=== PATIENT | male | born 1965 | race Caucasian/White ===

== ENCOUNTER 2017-02-28 08:59 | Emergency (ER) | payer BC ==
--- NOTE | 2017-02-28 09:32 | Emergency Department Record ---
History of Present Illness - General Chief Complaint: Palpitations Stated Complaint: HEART FLUTTERY Time Seen by Provider: 02/28/17 09:17 Source: Patient Mode of Arrival: Ambulatory Limitations: No limitations - History of Present Illness Initial Comments: The patient is here due to not feeling well today. He woke up twice during the night and felt lightheaded with standing. The first time was at 1am and he sat back down and the lightheadedness lasted 2-3 minutes. He also got up at 3am and after standing again felt lightheaded and may have passed out for 10 seconds. He states his girlfriend was in the bed and was with him and helped into the bed. There was no reported head trauma or injury and he has had no MALLORY after the fall. Since then he has intermittent fluttering in his chest and has a hx of Afib. Additionally he states he has had a 35 lb weight loss over the last few months and also has had some hemmorrhoids. The patient states he does have a cardiac hx and did have an WI about 10 years ago and does have 5 stents. MD Complaint: "Heart racing", Palpitations Onset/Timin -: Hour(s) Arrythmia History: Atrial fibrillation, History of ablation Associated Symptoms: Anxiety, Near-syncope, Other - Related Data Home Medications Medication Instructions Recorded Confirmed Last Taken Atorvastatin Calcium [Lipitor] 80 mg PO QHS 02/28/17 02/28/17 02/27/17 Clonazepam [Klonopin] 1 mg PO QHS 02/28/17 02/28/17 02/27/17 Clopidogrel Bisulfate [Plavix] 75 mg PO DAILY 02/28/17 02/28/17 02/28/17 Hydrocodone/Acetaminophen [Newell 1 each PO ASDIR 02/28/17 02/28/17 02/27/17 7.5-325 Tablet] Allergies Allergy/AdvReac Type Severity Reaction Status Date / Time No Known Drug Allergies Allergy Verified 02/28/17 09:42 Travel Screening - Travel/Exposure Within Last 30 Days Have you traveled within the last 30 days?: No - Travel/Exposure Within Last Year Have you traveled outside the [place] in the last year?: No - Additonal Travel Details Have you been exposed to anyone with a communicable illness?: No - Travel Symptoms Symptom Screening: None Review of Systems Constitutional: Denies: Chills, Fever, Malaise Eyes: Denies: Eye discharge ENT: Denies: Congestion Respiratory: Denies: Cough, Dyspnea Cardiovascular: Reports: Arrhythmia. Denies: Chest pain, Dyspnea on exertion Past Medical History - SOCIAL HISTORY Smoking Status: Current every day smoker Alcohol Use: None Drug Use: Rare Drug Use Detail:: Marijuana - RESPIRATORY Hx Respiratory Disorders: Yes Hx COPD: Yes (onset) - CARDIOVASCULAR Hx Cardio Disorders: Yes Hx Abnormal EKG: Yes Hx Cardiac Cath: Yes Hx Heart Attack: Yes Hx Irregular Heartbeat: Yes Comment:: ablation - NEURO Hx Neuro Disorders: Yes Hx Neuropathy: Yes - GI Hx GI Disorders: Yes Hx Diverticulitis: Yes Hx Hiatal Hernia: Yes - Hx Genitourinary Disorders: Yes Hx Kidney Stones: Yes - ENDOCRINE Hx Endocrine Disorders: No - MUSCULOSKELETAL Hx Musculoskeletal Disorders: Yes Hx Arthritis: Yes - PSYCH Hx Psych Problems: No - HEMATOLOGY/ONCOLOGY Hx Hematology/Oncology Disorders: No Family Medical History Any Significant Family History?: No Physical Exam - General General Appearance: Alert, Oriented x3, Cooperative, No acute distress - Head Head exam: Atraumatic, Normocephalic, Normal inspection - Eye Eye exam: Normal appearance, PERRL, EOMI - Neck Neck exam: Normal inspection, Full ROM. negative: Tenderness - Respiratory Respiratory exam: Normal lung sounds bilaterally. negative: Respiratory distress - Cardiovascular Cardiovascular Exam: Regular rate, Normal rhythm, Normal heart sounds - GI/Abdominal GI/Abdominal exam: Soft, Normal bowel sounds. negative: Tenderness - Extremities Extremities exam: Normal inspection, Full ROM, Normal capillary refill. negative: Tenderness - Neurological Neurological exam: Alert. negative: Motor sensory deficit Course Vital Signs 02/28/17 09:16 Temperature 98.1 F Pulse Rate [ 86 Pulse Ox Probe] Respiratory 16 Rate Blood Pressure 117/83 [Left Arm] - Reevaluation(s) Reevaluation #1: The patient is doing very well at this time. I did explain to him that his tests are all WNL's including the EKG and CXR. Due to his cardiac hx I did recommend hospital admission for monitoring but he is refusing. I explained to him that we would keep him here to monitor his heart and for a Cardiology consult on Thursday. The patient understands the reasons for the admission but is declining and would like to go home. He understands we cannot be held liable for any injury or illness that occurs due to NOT admitting him here. I also explained to him that he should return to the ER at any time for any further issues or problems. He does have an appointment with his PCP in 12 days. 02/28/17 10:45 Medical Decision Making - Data Complexity MDM Data: Labs Ordered and/or Reviewed, X-Ray Ordered and/or Reviewed, EKG Ordered and/or Reviewed - Lab Data Result diagrams: 02/28/17 09:19 02/28/17 09:19 - EKG Data -: EKG Interpreted by Me EKG: No Acute Changes, Normal EKG - Radiology Data Radiology results: Report reviewed (CXR: Neg.) Disposition Disposition: Discharge Clinical Impression: Weakness Disposition: Home, Self-Care Condition: (2) Stable Instructions: Heart Palpitations (ED) Additional Instructions: Please continue your regular medicines. Please see your PCP as planned on the . Return to the ER for any problems, pain or discomfort. Forms: Patient Portal Access Time of Disposition: 10:49 Quality - Quality Measures Quality Measures: N/A - Blood Pressure Screening View Details: Yes Does Patient Have Any of the Following: No Blood Pressure Classification: Normal BP Reading Systolic Measurement: 119 Diastolic Measurement: 73 Screening for High Blood Pressure: < Normal BP, F/U Not Required > [[id number]]
[2017-02-28 09:35] LABS: BASO % 0.5 % (0-6); HEMATOCRIT 42.5 % (42.0-52.0); HEMOGLOBIN 14.7 gm/dl (14.0-18.0); LYMPH % 27.5 % (16-45); MEAN CELL VOLUME 92.4 fl (81-97); MEAN CORPUSCULAR HGB CONC 34.6 g/dl (32-36); MEAN PLATELET VOLUME 8.6 fl (7.4-10.4); PLATELET COUNT 262 K/uL (130-400); RED CELL DISTRIBUTION WIDTH 12.8 % (11.5-14.5); WHITE BLOOD COUNT W/O DIFF 7.5 K/uL (4.2-12.2)
[2017-02-28 09:47] LABS: BLOOD UREA NITROGEN 18 mg/dL (6-20)
[2017-02-28 09:48] LABS: CREATININE 0.7 mg/dL (0.7-1.2); EST GLOMERULAR FILTRATION RATE > 60 mL/min; TOTAL PROTEIN 7.2 g/dL (6.6-8.7)
[2017-02-28 09:50] LABS: GLUCOSE,RANDOM 108 mg/dL (74-109)
[2017-02-28 09:51] LABS: INR 1.03; PARTIAL THROMBOPLASTIN TIME 30.1 SECONDS (24.5-39.1); PROTHROMBIN TIME (PATIENT) 11.1 SECONDS (9.5-12.1)
[2017-02-28] MEDS ORDERED: 0.9 % SODIUM CHLORIDE 1,000 ML BAG IV ONE (09:51)
[2017-02-28 09:53] LABS: ALB/GLOB RATIO 1.8 (1.1-1.8); ALBUMIN 4.6 g/dL (4.0-5.0); ALKALINE PHOSPHATASE 70 U/L (40-129); ALT/SGPT 17 U/L (<41); AST/SGOT 16 U/L (10.0-50.0); CREATINE PHOSPHOKINASE 95 U/L (39-308)
[2017-02-28 09:55] LABS: CKMB 2.2 ng/mL (<6.73)
--- NOTE | 2017-02-28 20:55 | RADIOLOGY REPORT ---
EXAM: CHEST 2 VIEWS HISTORY: HEART PALPITATIONS. TECHNIQUE: Chest x-ray, two views. COMPARISON: None. FINDINGS: The heart is not enlarged. No mediastinal mass. No acute infiltrate or vacular congestion identified. IMPRESSION: NO ACUTE CARDIAC OR PULMONARY ABNORMALITY IDENTIFIED. JOB NUMBER: [id number] MTDD
== END 2017-02-28 10:59 | disposition home or self-care (01) ==
LOC: ER 08:59
DX: R53.1 Weakness (principal); R42 Dizziness and giddiness; J44.9 Chronic obstructive pulmonary disease, unspecified; I10 Essential (primary) hypertension; I48.91 Unspecified atrial fibrillation; I25.2 Old myocardial infarction; F17.210 Nicotine dependence, cigarettes, uncomplicated
CPT/HCPCS: 71020; 80053; 82550; 82553; 84484; 85025; 85610; 85730; 93005; 93010; 96360; 99284; J7030